=== PATIENT | male | born 1990 | race Caucasian/White ===

== ENCOUNTER 2024-03-15 17:56 | Emergency (ER) | payer SELFPAY ==
[2024-03-15 18:30] LABS: BASOPHILS ABSOLUTE AUTO 0.02 K/uL (0.00-0.20); BASOPHILS PERCENT AUTO 0.3 % (0.0-1.0); EOSINOPHILS ABSOLUTE AUTO 0.03 K/uL (0.00-0.45); EOSINOPHILS PERCENT AUTO 0.5 % (0.0-6.0); HEMATOCRIT 39.2 % (42.0-52.0); HEMOGLOBIN 12.9 g/dL (14.0-18.0); IMMATURE GRAN ABSOLUTE AUTO 0.01 K/uL (0.00-0.05); IMMATURE GRAN PERCENT AUTO 0.2 % (0.0-0.4); LYMPHOCYTES ABSOLUTE AUTO 1.02 K/uL (1.00-4.80); MEAN CORPUSCULAR HEMOGLOBIN 27.3 pg (28.0-32.0); MEAN CORPUSCULAR HGB CONC 32.9 g/dL (32.0-36.0); MEAN CORPUSCULAR VOLUME 82.9 fL (83.0-99.0); MEAN PLATELET VOLUME 11.3 fL (9.4-12.4); MONOCYTES ABSOLUTE AUTO 0.46 K/uL (0.00-0.80); MONOCYTES PERCENT AUTO 7.2 % (0.0-8.0); NEUTROPHILS ABSOLUTE AUTO 4.82 K/uL (1.80-7.70); NEUTROPHILS PERCENT AUTO 75.8 % (41.0-71.0); PLATELET COUNT,PLT 190 K/uL (150-400); RED BLOOD CELL COUNT 4.73 M/uL (4.52-5.90); WHITE BLOOD CELL COUNT,WBC 6.36 K/uL (3.9-11.3)
[2024-03-15] MEDS: Pantoprazole 40 MG in Sodium Chloride 0.9% 10 ML IVPUSH ONE (18:32)
[2024-03-15] MEDS: Sodium Chloride 0.9% 1,000 ML IV ONE (18:32)
[2024-03-15] MEDS: Sodium Chloride 0.9% 2.5 ML Syringe FLUSH PRN (18:32)
[2024-03-15] MEDS: Sodium Chloride 0.9% 10 ML Syringe FLUSH PRN (18:33)
[2024-03-15 18:49] LABS: A/G RATIO 1.6 (0.9-1.6); ALBUMIN 4.2 g/dL (3.4-5.0); BILIRUBIN TOTAL 0.6 mg/dL (0.2-1.0); CALCIUM 9.4 mg/dL (8.5-10.1); CARBON DIOXIDE,CO2 28.4 mmol/L (21.0-32.0); CREATININE 0.9 mg/dL (0.8-1.3); EST CRCL DRUG DOSING (CG) 119.41 mL/min; POTASSIUM,K 3.7 mmol/L (3.5-5.1); PROTEIN TOTAL,TP 6.8 g/dL (6.4-8.2)
[2024-03-15] MEDS: Ketorolac 30 MG/ML SDV IVPUSH ONE (19:02)
[2024-03-15] MEDS: Ondansetron 4 MG/2 ML SDV IVPUSH ONE (19:03)
[2024-03-15 19:34] VITALS: BP 132/87; PULSE 58
== END 2024-03-15 19:32 | disposition home or self-care (01) ==
LOC: MW.ED 17:56
DX: R10.13 Epigastric pain (principal); Z88.0 Allergy status to penicillin; Z75.8 Other problems related to medical facilities and other health care
CPT/HCPCS: 36415; 80053; 83690; 85025; 96361; 96374; 96375; 99284; J1885; J2405; J2470; J3490; J7030